=== PATIENT | male | born 1945 | race Caucasian/White ===

== ENCOUNTER → 2023-11-15 07:17 | Outpatient (REF) | payer MEDICARE, SELFPAY | LOC: SDSPAT 07:17 | PROVIDERS: ATTENDING PHYSICIAN Surgery; FAMILY PHYSICIAN Family Medicine | DX: K40.20 Bilateral inguinal hernia, without obstruction or gangrene, not specified as recurrent (principal) | CPT/HCPCS: 36415; 93005 ==

== ENCOUNTER 2023-11-27 06:31 | Day surgery (SDC) | payer MEDICARE, SELFPAY ==
[2023-11-15 07:28] VITALS: BMI 32.4
[2023-11-27] VITALS (14 sets, daily range): BP systolic 119–158; BP diastolic 64–115; BMI 30.4; BMI 32.4
[2023-11-27] MEDS: TYLENOL 1000 MG PO (07:43)
[2023-11-27] MEDS: NORMOSOL-R 1000 IV (07:44)
--- NOTE | 2023-11-27 10:52 | OR.RPT ---
Operative Report
Operative Report
Primary Surgeon: Ines
Assisting: Samaria GREENBERG
Pre-op Diagnosis: Bilateral inguinal hernias
Post-op Diagnosis: Bilateral incarcerated inguinal hernias
Procedure Performed: Robot assisted laparoscopic repair of bilateral incarcerated inguinal hernias
Anesthesia Type: GETA
Specimen / Cultures: None
Estimated Blood Loss: 5cc
Complications: None immediate
Operative Findings: Right direct defect, pseudosac everted and secured to Josef's, left indirect defect, small cord lipoma; B/L MID XL 3D max
Date of surgery: 11/27/23
Indications:� This 78M developed symptomatic bilateral inguinal hernias. Robot assisted laparoscopic repair was planned.
Description of procedure:� The patient was taken to the operating room and positioned into supine position. The patient�s abdomen was prepped and draped in standard sterile fashion. A time-out was completed verifying correct patient, procedure,
site, positioning, and implants and special equipment prior to beginning this procedure.� The hernia was manually reduced after induction. A stab incision was made in the left upper quadrant, a Veress needle was inserted and proper position was
confirmed by aspiration and saline drop test. Following this, pneumoperitoneum was created with insufflation of carbon dioxide to 12 mmHg. Then a 8mm robotic trocar was inserted above and to the left of the umbilicus. A laparoscope was inserted and
the area of initial trocar entry and Veress needle placement were both inspected and no injuries were found. Two 8mm trocars were then placed lateral to the rectus sheath under direct visualization.
Both inguinal regions were inspected and the median umbilical ligament, medial umbilical ligament, and lateral umbilical fold were identified. Attention was turned to the right groin. The peritoneum was incised transversely above the defect and a
flap was developed in the caudad direction. Josef�s ligament was identified ultimately dissected to its junction with the iliac vein and the space of Retzius was developed bluntly.� The dissection was continued inferiorly to the iliopubic tract,
with care taken to avoid injury to the femoral branch of the genitofemoral nerve and the lateral femoral cutaneous nerve. The cord structures were parietalized.
The direct space was inspected and a hernia was identified and reduced by gentle traction. The pseudosac was everted and secured to Josef's ligament with 2-0 vicryl suture. The femoral space was inspected a defect was not identified.� The indirect
space was inspected and a hernia was not identified.
Attention was turned to the left groin and the above process was repeated. An indirect defect was reduced by gentle traction along with a small cord lipoma. The direct and femoral spaces were inspected, no defects were identified.
Extra large left and right MID 3D max mesh was passed through a trocar. The mesh was placed into the preperitoneal space and moved into position to lay flat and completely cover the direct, indirect, and femoral spaces with overlap at the midline.
The mesh was secured into place using 2-0 vicryl suture to Josef�s ligament medially and laterally. Care was taken to avoid the inferolateral triangles containing the iliac vessels and genital nerves.
The peritoneal flap was closed over the mesh and secured with 2-0 monocryl stratafix suture in similar positions of safety. A 14g angiocath was used to decompress the preperitoneal space revealing good seal and all mesh in good position without
folding or curling. After ensuring adequate hemostasis, the trocars were removed and the pneumoperitoneum allowed to escape. The trocar incisions were closed at the skin level using 4-0 monocryl and topical skin adhesive. All counts were correct and
the patient tolerated the procedure well and was taken to the postanesthesia care unit in stable condition.
The assistance of Samaria GREENBERG was required due to the complexity of the procedure. During the procedure Samaria GREENBERG assisted with retraction, resection, and closure of the wound.
[2023-11-27] MEDS: SUBLIMAZE 25 MCG IV ×2 (12:03→12:17)
== END 2023-11-27 14:38 | disposition home or self-care (01) ==
LOC: SDS 06:31
PROVIDERS: ATTENDING PHYSICIAN Surgery
DX: K40.00 Bilateral inguinal hernia, with obstruction, without gangrene, not specified as recurrent (principal)
CPT/HCPCS: 49650; C1781

== ENCOUNTER 2024-07-24 09:43 | Emergency (ER) | payer MEDICARE, SELFPAY ==
[2024-07-24 09:53] VITALS: BP 144/72
[2024-07-24 10:49] VITALS: BP 140/78
[2024-07-24 10:52] VITALS: BMI 31.6
[2024-07-24 11:00] VITALS: BP 148/69
[2024-07-24 11:24] LABS: COVID-19 Antigen Positive (Negative)
[2024-07-24 11:44] VITALS: BP 148/69
[2024-07-24 12:06] VITALS: BP 124/58
--- NOTE | 2024-07-24 12:17 | ED.GENMED ---
History of Present Illness
General
Chief Complaint: Cough
Source: patient and spouse
Exam Limitations: none
Time Seen by Provider: 07/24/24 11:06
Nursing documentation reviewed up to this point in time: agreed with
History of Present Illness
History of Present Illness:
Patient presents to ED secondary to intermittent fever, cough, body ache, and 'not feeling well', over the past 2 weeks. Denies headache. Denies sore throat. Denies nausea, vomiting, or diarrhea. Denies decreased appetite. Deny recent travel.
Denies sick contact. Patient was started on antibiotics, i.e. Z-Umang, by his primary care physician last week with minimal relief in symptoms.
Past History
Past History
ED Past Medical History: HTN, Hypercholesterolemia and Psychiatric
Social History
Tobacco: Former smoker
Alcohol: None
Personal:
Family History
Family History: Negative Diabetes, Hypertension or CAD
Review of Systems
Review of Systems
Allergies reviewed?: Yes
All Other Systems: ROS reviewed and negative except as documented in HPI and ROS
Constitutional: Reports fever
EENT: Reports no symptoms
Respiratory: Reports cough and trouble breathing
Cardiac: Reports no symptoms; Denies chest pain
ABD/GI: Reports no symptoms; Denies vomiting or diarrhea
Musculoskeletal: Reports muscle pain
Skin: Reports no symptoms
Neurological: Reports no symptoms
Phy Exam
Physical Exam
Physical Exam:
Physical Exam
General: no apparent distress, not acutely ill. febrile. nontoxic appearing
Head: nc/at. eomi
Neck: supple. normal range of motion.
Heart: s1/s2 regular rate and rhythm, no murmur. equal radial pulses.
Lungs: no acute respiratory distress. clear bilaterally
Abdomen: normal bowel sounds. not tender.
Neuro: alert and oriented x 3. no focal neurological deficits
Skin: no rash
Psychiatric: well kept. interactive and cooperative
Extremities: no edema. no calf tenderness.
Sepsis
Sepsis Screening
Sepsis Assessment: Sepsis Ruled Out
Sepsis Screen
Sepsis Screen: Sepsis Ruled Out
Date: 07/24/24
Time: 17:08
Course
Orders/Labs/Results
Orders:
Orders
07/24/24 10:50
COVID-19 Antigen Urgent
Source: Nasal Swab
Influenza A+B Rapid Molecular Urgent
LUL Source: Nasal Swab
Specimen Description:
07/24/24 12:20
Ibuprofen [Motrin] 400 mg PO NOW STA
Abnormal Lab Results
07/24/24
10:50
SARS-CoV-2 Antigen Positive A
(Negative)
Vital Signs
Initial and Last Documented VS:
Initial Vital Signs
Temp Pulse Resp BP Pulse Ox
100.8 F H 95 18 144/72 95
07/24/24 09:53 07/24/24 09:53 07/24/24 09:53 07/24/24 09:53 07/24/24 09:53
Last Documented Vital Signs
Temp Pulse Resp BP Pulse Ox
100.8 F H 91 16 124/58 92
07/24/24 09:53 07/24/24 12:06 07/24/24 12:06 07/24/24 12:06 07/24/24 12:06
MDM/Problems Addressed
MDM/Problems Addressed:
History and exam consistent with symptoms secondary to COVID-19. However, fortunately, patient is hemodynamically stable, without any evidence of hypoxia nor dehydration. As symptoms started over 5 days ago, patient is not a candidate for Paxlovid
treatment at this time. As such, patient will be discharged home in stable condition, with recommendation to continue to take Tylenol/Motrin for fever along with continued hydration, as well as PCP f/u as outpatient.
*Critical Care Note
Total Time (30-74mins, 75-104mins- exclusive of procedures): Not Applicable
ED Attending Note
-
Portions of this chart may have been created with voice recognition software.� Occasional wrong word or��sound alike� substitutions may have occurred due to the inherent limitations of voice recognition software.
Discharge Plan
Departure
Patient Disposition: Home (Routine Discharge)
Date of Disposition: 07/24/24
Time of Disposition: 12:20
Patient with high blood pressure during this ER visit?: Yes
Discharge Problem:
COVID-19
Instructions: COVID-19 - ED discharge instructions
Prescriptions:
No Action
clonazepam 0.5 MG tablet
0.5 mg PO TID
atorvastatin 10 MG tablet
10 mg PO QPM
amlodipine 5 MG tablet
5 mg PO HS
aspirin [Tonny Chewable Aspirin] 81 MG tablet,chewable
81 mg PO HS
tamsulosin 0.4 mg Capsule
0.4 mg PO DAILY
ascorbic acid (vitamin C) [Vitamin C] 1,000 mg Tablet
1 g PO DAILY
cetirizine [Zyrtec] 10 mg Tablet
20 mg PO DAILY
paroxetine HCl 20 mg Tablet
60 mg PO HS
diphenhydramine HCl [Benadryl] 25 mg Capsule
25 mg PO HS
mirtazapine 15 mg Tablet
15 mg PO HS
cyanocobalamin (vitamin B-12) [Vitamin B-12] 2,000 mcg Tablet Extended Release
2,000 mcg PO DAILY
multivit with min-folic acid [Multivitamin Gummies] 200 mcg Tablet,Chewable
2 tab PO DAILY
melatonin 10 mg Tablet
20 mg PO HS
Prevagen
1 tab PO DAILY
Super Beets
2 tab PO DAILY
potassium gluconate
1 tab PO QPM
oxycodone 5 mg tablet
5 - 10 mg PO Q4HPRN PRN (Reason: moderate to severe pain) Qty: 20 0RF
Referrals:
Monty Jay MD [Family Provider] -
Activity Restrictions/Additional Instructions:
As discussed, please follow-up with your primary care physician with any further concerns. Please consider return to ED with increased shortness of breath or inability to eat. You may continue to take Tylenol or Motrin for fever control.
Interventions
Interventions:
*Risk Screen - Suicide Last Done: 07/24/24 09:53
*General Assessment Last Done: 07/24/24 09:53
*Neglect/Abuse Screening Last Done: 07/24/24 09:53
ED- Fall Risk Assessment Last Done: 07/24/24 10:54
*ED COVID-19 Vaccine History Last Done: 07/24/24 11:45
*Nursing Disposition Last Done: 07/24/24 12:28
ED- Pulmonary Assessment Last Done: 07/24/24 10:53
Discharge Date and Time
Discharge Date/Time: 07/24/24 12:28
Print Language: [place] K[place]
== END 2024-07-24 12:28 | disposition home or self-care (01) ==
LOC: EMR 09:43
PROVIDERS: EMERGENCY PHYSICIAN Emergency Medicine; FAMILY PHYSICIAN Family Medicine
DX: U07.1 COVID-19 (principal); I10 Essential (primary) hypertension; E78.00 Pure hypercholesterolemia, unspecified; Z87.891 Personal history of nicotine dependence
CPT/HCPCS: 99283; 87502; 87811